=== PATIENT | male | born 1960 | race Caucasian/White ===

== ENCOUNTER 2016-12-15 07:01 | Emergency (ER) | payer OTHER ==
[~2016-12-15] VITALS: Ht 180.3 cm; Wt 87.2 kg
[2016-12-15] MEDS ORDERED: MOTRIN400 MG PO (07:41)
[2016-12-15 07:55] VITALS: BP 158/88
== END 2016-12-15 07:58 | disposition home or self-care (01) ==
LOC: EME 07:01
DX: S20.212A Contusion of left front wall of thorax, initial encounter (principal); W18.11XA Fall from or off toilet without subsequent striking against object, initial encounter; F17.200 Nicotine dependence, unspecified, uncomplicated
CPT/HCPCS: 71020; 99281; 99284